=== PATIENT | female | born 1995 | race Two or more races ===

== ENCOUNTER 2021-09-17 08:41 | Outpatient (CLI) | payer OTHER | END 2021-09-17 10:29 | disposition home or self-care (01) | LOC: PRENATAL 08:41 | PROVIDERS: ATTEND Obstetrics & Gynecology Maternal & Fetal Medicine | DX: O35.0XX1 Maternal care for (suspected) central nervous system malformation in fetus, fetus 1 (principal); O35.3XX1 Maternal care for (suspected) damage to fetus from viral disease in mother, fetus 1; O98.512 Other viral diseases complicating pregnancy, second trimester; O99.891 Other specified diseases and conditions complicating pregnancy; Z36.89 Encounter for other specified antenatal screening; Z3A.24 24 weeks gestation of pregnancy ==

== ENCOUNTER 2021-12-17 14:15 | Inpatient (IN) | payer OTHER ==
[~2021-12-17] VITALS: Ht 154.9 cm; Wt 58.5 kg
[2022-01-05] MEDS ORDERED: FAMOTIDINE40 MG (08:26)
[2022-01-05] MEDS ORDERED: FOLIC ACID0.8 M1 (08:27)
[2022-01-05] MEDS ORDERED: PRENATAL + DHA1 EAC1 (08:27)
== END 2022-01-06 15:43 | disposition home or self-care (01) | DRG 807 ==
LOC: OB/GYN 01-01 14:15 → LDR 01-04 06:53 → OB/GYN 01-04 06:53
PROVIDERS: ADMIT Obstetrics & Gynecology; ATTEND Obstetrics & Gynecology
PROC: 10E0XZZ Delivery of Products of Conception, External Approach (ICD-10-PCS; principal; 2022-01-04)
PROC: 0KQM0ZZ Repair Perineum Muscle, Open Approach (ICD-10-PCS; 2022-01-04)
PROC: 4A1HXCZ Monitoring of Products of Conception, Cardiac Rate, External Approach (ICD-10-PCS; 2022-01-04)
DX: O70.1 Second degree perineal laceration during delivery (principal); Z37.0 Single live birth; O99.820 Streptococcus B carrier state complicating pregnancy; Z3A.40 40 weeks gestation of pregnancy; Z20.822 Contact with and (suspected) exposure to COVID-19